=== PATIENT | male | born 1975 | race Caucasian/White ===

== ENCOUNTER 2017-07-29 22:24 | Emergency (ER) | payer OTHER ==
[~2017-07-29] VITALS: Ht 185.4 cm; Wt 158.8 kg
[~2017-07-29 22:24] MED LIST: ALBU0.0939; UNKNOWN BP MED
[2017-07-29 22:47] VITALS: BP 137/101
--- NOTE | 2017-07-29 23:06 | NUR ---
PT TAKEN TO CHAIR B. RN ASSESSING PT
--- NOTE | 2017-07-29 23:16 | NUR ---
41Y M BIB SELF C/O LEFT UPPER TOOTHACHE, RADIATING TO THE LEFT EAR X 1 DAY. PT DENIES ANY N/V/D, SOB, CP AT THE MOMENT. PT STATES HIS DENTIST WONT SEE HIM UNTIL PT BP IS CONTROLLED. PT CURRENTLY TAKING HTN MEDICATIONS.
--- NOTE | 2017-07-30 00:08 | NUR ---
Dr. Piña evaluating patient.
[2017-07-30] MEDS ORDERED: oxyCODONE/APAP 5/325 MG 1 TAB TAB PO ONE (00:10)
--- NOTE | 2017-07-30 00:35 | NUR ---
Patient discharged with v/s stable WILL BE DRIVEN HOME BY FRIEND REGGIE. Written and verbal after care instructions given and explained. Patient alert, oriented and verbalized understanding of instructions. Ambulatory with steady gait. All questions addressed prior to discharge. ID band removed. Patient advised to follow up with PMD. Rx of NORCO 5/325MG, AUGMENTIN 875MG given. Patient educated on indication of medication including possible reaction and side effects. Opportunity to ask questions provided and answered.
[2017-07-30 00:36] VITALS: BP 141/99
== END 2017-07-30 00:35 | disposition home or self-care (01) ==
LOC: MED 22:24
DX: K02.9 Dental caries, unspecified (principal); J44.9 Chronic obstructive pulmonary disease, unspecified; I10 Essential (primary) hypertension; Z79.899 Other long term (current) drug therapy; Z88.0 Allergy status to penicillin; Z88.1 Allergy status to other antibiotic agents
CPT/HCPCS: 99283

== ENCOUNTER 2018-03-08 19:29 | Emergency (ER) | payer OTHER ==
[~2018-03-08] VITALS: Ht 185.4 cm; Wt 170.6 kg
[2018-03-08 19:42] VITALS: BP 183/123
--- NOTE | 2018-03-08 19:45 | NUR ---
PT PRESENTED ER WITH C/O PAIN TO THE RIGHT SIDE OF MOUTH X 10 DAYS. PT HAS SWELLING TO RIGHT SIDE OF FACE.PT STATED HE WENT TO THE DENTIST BUT THEY REFUSED TO TREAT HIM DUE TO HIGH BP/ HE NEEDS A RELEASE FROM THE MD. PT HAS BEEN SWISHING WITH LISTERINE TO RELIEVE PAIN. PT STATED THE PAIN IS TRAVELING UP TO THE HEAD. PAIN LEVEL IS 10/10 AT THIS TIME. PT IS A/O X 4. PT HAS ALLERGIES TO PENICILLIN AND THE MYCINS. MEDICAL HX IS HTN AND KIDNEY DISEASE; VSS; PATIENT POSITIONED FOR COMFORT; HOB ELEVATED; BEDRAILS UP X2; BED DOWN. ER MD MADE AWARE OF PT STATUS.
--- NOTE | 2018-03-08 19:55 | NUR ---
PT TAKEN TO BED 9
--- NOTE | 2018-03-08 20:30 | NUR ---
Dr. Perez evaluating patient at bedside.
[2018-03-08 20:40] VITALS: BP 183/123
--- NOTE | 2018-03-08 20:40 | NUR ---
Patient discharged by Dr. Perez with v/s stable. Written and verbal after care instructions given and explained. Patient alert, oriented and verbalized understanding of instructions. Ambulatory with steady gait. All questions addressed prior to discharge. ID band removed. Patient advised to follow up with PMD. Rx of naprosyn and clindamycin was given. Patient educated on indication of medication including possible reaction and side effects. Opportunity to ask questions provided and answered.
== END 2018-03-08 20:40 | disposition home or self-care (01) ==
LOC: MED 19:29
DX: J44.9 Chronic obstructive pulmonary disease, unspecified (principal); K08.89 Other specified disorders of teeth and supporting structures; I10 Essential (primary) hypertension; F17.200 Nicotine dependence, unspecified, uncomplicated; F12.10 Cannabis abuse, uncomplicated; Z88.0 Allergy status to penicillin; Z79.899 Other long term (current) drug therapy
CPT/HCPCS: 99283

== ENCOUNTER 2019-01-20 15:17 | Emergency (ER) | payer OTHER ==
[~2019-01-20] VITALS: Ht 185.4 cm; Wt 172.0 kg
[2019-01-20 15:21] VITALS: BP 143/98
--- NOTE | 2019-01-20 15:31 | NUR ---
WAIT IN LOBBY.
--- NOTE | 2019-01-20 15:56 | NUR ---
PT AMBULATED TO ER BED 08
--- NOTE | 2019-01-20 16:13 | NUR ---
C/O LEFT BIG TOE PAIN & SWELLING X 2 DAYS. PT HAS HX OF GOUT. NOT ON MEDS FOR GOUT. HAS EXPERIENCED SIMILIAR SX IN THE PAST WITH DX OF GOUT. AMBULATORY, BUT WITH SEVERE PAIN, AND USE OF CANE. EDEMA AND ERYTHEMA SURROUNDING LEFT BIG TOE. TENDER TO PALPATION. LIMITED ROM. MED HX: HTN, KIDNEY PROBLEM, GOUT
--- NOTE | 2019-01-20 17:04 | NUR ---
DR THOMAS EVALUATING PATIENT AT BEDSIDE
[2019-01-20] MEDS ORDERED: HYDROcodone/APAP 5/325 MG 1 TAB TAB PO ONE (17:20)
[2019-01-20] MEDS ORDERED: predniSONE 20 MG TAB PO ONE (17:20)
[2019-01-20 17:50] VITALS: BP 127/67
== END 2019-01-20 17:47 | disposition home or self-care (01) ==
LOC: MED 15:17
DX: M10.9 Gout, unspecified (principal); J44.9 Chronic obstructive pulmonary disease, unspecified; I10 Essential (primary) hypertension; Z88.0 Allergy status to penicillin
CPT/HCPCS: 99283; J7512

== ENCOUNTER 2019-10-04 13:04 | Emergency (ER) | payer OTHER ==
[~2019-10-04] VITALS: Ht 185.4 cm; Wt 158.8 kg
[2019-10-04 13:24] VITALS: BP 179/88
--- NOTE | 2019-10-04 13:30 | NUR ---
PT INSTRUCTED TO WAIT IN LOBBY
--- NOTE | 2019-10-04 14:17 | NUR ---
PT AMBULATED TO ER BED 05
--- NOTE | 2019-10-04 14:30 | NUR ---
PT C/O ANKLE PAIN 10/10 SHARP PAIN RADIATING UP LED AND SWELLING X1 WEEK. PT DENIES INJURY. POST TIBIAL PULSES PRESENT. ANKLE IS ERYTHEMIC AND INFLAMMED WITH BLISTERS AROUND AREA. PATIENT STATES PAIN OF 10/10 AT THIS TIME; VSS; PATIENT POSITIONED FOR COMFORT; HOB ELEVATED; BEDRAILS UP X1; BED DOWN. ER MD MADE AWARE OF PT STATUS.
--- NOTE | 2019-10-04 14:30 | NUR ---
Dr. Ross is evaluating the patient at bedside.
[2019-10-04] MEDS ORDERED: cefTRIAXone 1,000 MG VIAL ONE (14:54)
[2019-10-04] MEDS ORDERED: LIDOCAINE MPF 1% 5 ML ONE (14:55)
[2019-10-04] MEDS: cefTRIAXone 1,000 MG in LIDOCAINE MPF 1% 2.1 ML IM ONE (15:02)
--- NOTE | 2019-10-04 15:06 | NUR ---
U/S IS AT BEDSIDE.
--- NOTE | 2019-10-04 15:40 | NUR ---
pt is resting in the bed. Helped pt raise his legs to reduce edema and pain the the lower legs.
--- NOTE | 2019-10-04 16:13 | NUR ---
Dr. Ross is reevaluating pt at bedside.
--- NOTE | 2019-10-04 16:52 | NUR ---
Patient discharged with v/s stable. Written and verbal after care instructions given and explained. Patient alert, oriented and verbalized understanding of instructions. Ambulatory with steady gait. All questions addressed prior to discharge. ID band removed. Patient advised to follow up with PMD. Rx of BACTRIM, KEFLEX given. Patient educated on indication of medication including possible reaction and side effects. Opportunity to ask questions provided and answered.
[2019-10-04 16:53] VITALS: BP 149/78
[2019-10-04 16:54] LABS: BASOPHILS # (AUTO) 0.1 K/uL (0.00-0.22); BASOPHILS % (AUTO) 1.2 % (0.0-2.0); EOSINOPHILS # (AUTO) 0.2 K/uL (0-0.4); EOSINOPHILS % (AUTO) 2.4 % (0.0-4.0); HEMATOCRIT 48.6 % (36-52); HEMOGLOBIN 15.9 g/dL (12.0-18.0); LYMPHOCYTES # (AUTO) 1.9 K/uL (2.0-11.5); LYMPHOCYTES % (AUTO) 23.7 % (20.5-51.1); MEAN CORPUSCULAR HEMOGLOBIN 27 pg (27-31); MEAN CORPUSCULAR HGB CONC 33 g/dL (33-37); MEAN CORPUSCULAR VOLUME 83.5 fL (80-94); MONOCYTES # (AUTO) 0.9 K/uL (0.8-1.0); MONOCYTES % (AUTO) 11.2 % (1.7-9.3); NEUTROPHILS % (AUTO) 61.5 % (42.2-75.2); PLATELET COUNT (AUTO) 227 K/uL (140-450); RED BLOOD CELL COUNT(AUTO) 5.82 MIL/uL (4.20-6.10); RED CELL DISTRIBUTION WIDTH 15.8 % (11.6-13.7); WHITE BLOOD COUNT (AUTO) 8.2 K/uL (4.8-10.8)
[2019-10-04 16:59] LABS: ANION GAP 11.9 (8-16); CARBON DIOXIDE 28.5 mmol/L (21-32); CREATININE 1.5 mg/dL (0.6-1.3); POTASSIUM 3.4 mmol/L (3.5-5.1)
[2019-10-04 17:43] LABS: PROTHROMBIN TIME 9.6 secs (10.8-13.4)
== END 2019-10-04 16:52 | disposition home or self-care (01) ==
LOC: MED 13:04
DX: I82.432 Acute embolism and thrombosis of left popliteal vein (principal); L03.116 Cellulitis of left lower limb; F17.210 Nicotine dependence, cigarettes, uncomplicated; J44.9 Chronic obstructive pulmonary disease, unspecified; I10 Essential (primary) hypertension; Z79.899 Other long term (current) drug therapy; Z88.0 Allergy status to penicillin; Z71.6 Tobacco abuse counseling
CPT/HCPCS: 36415; 80048; 85025; 85610; 85730; 93971; 96372; 99284; J0696; J2001; Q0092

== ENCOUNTER 2019-10-04 22:32 | Emergency (ER) | payer OTHER ==
[~2019-10-04] VITALS: Ht 185.4 cm; Wt 158.8 kg
[2019-10-04 22:50] VITALS: BP 185/101
--- NOTE | 2019-10-04 22:59 | NUR ---
PT TAKEN TO BED 4
--- NOTE | 2019-10-04 23:00 | NUR ---
PT EXAMINED BY ER MD SORIANO, NO NURSING INTERVENTIONS ORDERED.
--- NOTE | 2019-10-04 23:33 | NUR ---
Dr. Sales examining patient.
[2019-10-04 23:50] VITALS: BP 139/100
--- NOTE | 2019-10-04 23:51 | NUR ---
PT STATES HE DOES NOT WISH TO BE ADMITTED TO HOSPITAL.
--- NOTE | 2019-10-04 23:52 | NUR ---
Patient discharged with v/s stable. Written and verbal after care instructions given and explained. Patient alert, oriented and verbalized understanding of instructions. Ambulatory with steady gait. All questions addressed prior to discharge. ID band removed. Patient advised to be admitted, however, did not wish to stay in hospital and agreed to depart AMA. Rx of XARELTO given. Patient educated on indication of medication including possible reaction and side effects. Opportunity to ask questions provided and answered.
== END 2019-10-04 23:52 | disposition home or self-care (01) ==
LOC: MED 22:32
DX: I82.402 Acute embolism and thrombosis of unspecified deep veins of left lower extremity (principal); L03.116 Cellulitis of left lower limb; F17.210 Nicotine dependence, cigarettes, uncomplicated; J44.9 Chronic obstructive pulmonary disease, unspecified; I10 Essential (primary) hypertension; Z88.0 Allergy status to penicillin; Z79.899 Other long term (current) drug therapy
CPT/HCPCS: 99283

== ENCOUNTER 2020-01-14 15:50 | Emergency (ER) | payer OTHER ==
[~2020-01-14] VITALS: Ht 185.4 cm; Wt 154.2 kg
[2020-01-14 15:51] VITALS: BP 174/106
--- NOTE | 2020-01-14 16:03 | NUR ---
PT AMB TO BED 11
[2020-01-14] MEDS ORDERED: ACETAMINOPHEN 325 MG TAB PO ONE (16:40)
--- NOTE | 2020-01-14 16:47 | NUR ---
ref from pmd to r/o dvt rle--pt requested refill on his blood thinners rle always hurt cramping type pain about same time lle started to hurt but only dvt found on lle last time. denies recent injury
--- NOTE | 2020-01-14 16:51 | NUR ---
ultrasound at bedside
[2020-01-14 17:27] LABS: BASOPHILS % (AUTO) 0.3 % (0.0-2.0); EOSINOPHILS # (AUTO) 0.2 K/uL (0-0.4); EOSINOPHILS % (AUTO) 1.7 % (0.0-4.0); HEMATOCRIT 48.5 % (36-52); HEMOGLOBIN 15.9 g/dL (12.0-18.0); LYMPHOCYTES # (AUTO) 1.9 K/uL (2.0-11.5); LYMPHOCYTES % (AUTO) 17.5 % (20.5-51.1); MEAN CORPUSCULAR HEMOGLOBIN 28 pg (27-31); MEAN CORPUSCULAR HGB CONC 33 g/dL (33-37); MEAN CORPUSCULAR VOLUME 83.9 fL (80-94); MONOCYTES # (AUTO) 0.9 K/uL (0.8-1.0); MONOCYTES % (AUTO) 8.7 % (1.7-9.3); NEUTROPHILS # (AUTO) 7.7 K/uL (1.8-7.7); NEUTROPHILS % (AUTO) 71.8 % (42.2-75.2); PLATELET COUNT (AUTO) 201 K/uL (140-450); RED BLOOD CELL COUNT(AUTO) 5.78 MIL/uL (4.20-6.10); WHITE BLOOD COUNT (AUTO) 10.8 K/uL (4.8-10.8)
[2020-01-14 18:12] LABS: ALBUMIN 3.7 g/dL (3.4-5.0); ANION GAP 14.5 (8-16); CARBON DIOXIDE 25.9 mmol/L (21-32); CREATININE 1.5 mg/dL (0.6-1.3); POTASSIUM 3.4 mmol/L (3.5-5.1); TOTAL BILIRUBIN 0.5 mg/dL (0.0-1.0)
[2020-01-14 18:23] LABS: PROTHROMBIN TIME 9.5 secs (10.8-13.4)
--- NOTE | 2020-01-14 18:27 | NUR ---
Patient discharged with v/s stable. Written and verbal after care instructions given and explained. Patient alert, oriented and verbalized understanding of instructions. Ambulatory with steady gait. All questions addressed prior to discharge. ID band removed. Patient advised to follow up with PMD. Rx of TYLENOL given. Patient educated on indication of medication including possible reaction and side effects. Opportunity to ask questions provided and answered. ULTRASOUND READ HANDED TO PT FOR PMD
[2020-01-14 18:28] VITALS: BP 147/96
== END 2020-01-14 18:27 | disposition home or self-care (01) ==
LOC: MED 15:50
DX: M79.604 Pain in right leg (principal); R73.9 Hyperglycemia, unspecified; J44.9 Chronic obstructive pulmonary disease, unspecified; I10 Essential (primary) hypertension; Z79.899 Other long term (current) drug therapy; Z88.0 Allergy status to penicillin
CPT/HCPCS: 36415; 80053; 85025; 85610; 85730; 93971; 99284; Q0092

== ENCOUNTER 2020-07-12 14:18 | Emergency (ER) | payer OTHER ==
[~2020-07-12] VITALS: Ht 180.3 cm; Wt 179.6 kg
[2020-07-12 14:21] VITALS: BP 175/87
--- NOTE | 2020-07-12 14:41 | NUR ---
44 YO M BIB SELF FOR C/C OF 5/10 BILATERAL LEG PAIN X2 WEEKS WITH REDNESS AND SWELLING. PT DESCRIBES PAIN PINS AND NEEDLES AND FEELING LIKE HIS LEG IS GOING TO POP. PT STATES HE HAS A HX OF LEFT LEG DVT IN NOVEMBER 2019, PT WAS STARTED ON XARELTO AFTER DX. PT DENIES CHEST PAIN, STATES HE ALWAYS HAS SOB DUE TO COPD, DENIES INCREASED SOB. PEDAL PULSES EQUAL AND REGULAR. BED LOCKED AND IN LOWEST POSITION. SIDE RAILS X1. MED HX: COPD, HTN, DVT, STAGE 3 KIDNEY DISEASE
--- NOTE | 2020-07-12 14:50 | NUR ---
LAB AT BEDSIDE
--- NOTE | 2020-07-12 14:54 | NUR ---
US AT BEDSIDE
[2020-07-12 14:56] LABS: BASOPHILS % (AUTO) 0.3 % (0.0-2.0); EOSINOPHILS # (AUTO) 0.2 K/uL (0-0.4); EOSINOPHILS % (AUTO) 1.8 % (0.0-4.0); HEMATOCRIT 47.7 % (36-52); HEMOGLOBIN 15.8 g/dL (12.0-18.0); LYMPHOCYTES % (AUTO) 21.4 % (20.5-51.1); MEAN CORPUSCULAR HEMOGLOBIN 28 pg (27-31); MEAN CORPUSCULAR HGB CONC 33 g/dL (33-37); MONOCYTES # (AUTO) 0.8 K/uL (0.8-1.0); MONOCYTES % (AUTO) 8.2 % (1.7-9.3); NEUTROPHILS # (AUTO) 6.4 K/uL (1.8-7.7); NEUTROPHILS % (AUTO) 68.3 % (42.2-75.2); PLATELET COUNT (AUTO) 215 K/uL (140-450); RED BLOOD CELL COUNT(AUTO) 5.67 MIL/uL (4.20-6.10); RED CELL DISTRIBUTION WIDTH 15.3 % (11.6-13.7); WHITE BLOOD COUNT (AUTO) 9.3 K/uL (4.8-10.8)
[2020-07-12] MEDS ORDERED: HYDROcodone/APAP 5/325 MG 1 TAB TAB PO ONE (15:05)
[2020-07-12 15:16] LABS: PROTHROMBIN TIME 9.5 secs (10.8-13.4)
[2020-07-12 15:19] LABS: ALBUMIN 3.7 g/dL (3.4-5.0); ANION GAP 11.4 (8-16); CARBON DIOXIDE 30.3 mmol/L (21-32); CREATININE 1.6 mg/dL (0.6-1.3); POTASSIUM 3.7 mmol/L (3.5-5.1); TOTAL BILIRUBIN 0.5 mg/dL (0.0-1.0)
[2020-07-12 16:14] VITALS: BP 175/87
--- NOTE | 2020-07-12 16:15 | NUR ---
Patient discharged with v/s stable. Written and verbal after care instructions given and explained. Patient alert, oriented and verbalized understanding of instructions. Ambulatory with steady gait. All questions addressed prior to discharge. ID band removed. Patient advised to follow up with PMD. Rx of TYLENOL,BACTRIM given. Patient educated on indication of medication including possible reaction and side effects. Opportunity to ask questions provided and answered.
== END 2020-07-12 16:15 | disposition home or self-care (01) ==
LOC: MED 14:18
DX: L03.116 Cellulitis of left lower limb (principal); L03.115 Cellulitis of right lower limb; R60.0 Localized edema; F17.210 Nicotine dependence, cigarettes, uncomplicated; I13.10 Hypertensive heart and chronic kidney disease without heart failure, with stage 1 through stage 4 chronic kidney disease, or unspecified chronic kidney disease; N18.9 Chronic kidney disease, unspecified; J44.9 Chronic obstructive pulmonary disease, unspecified; Z88.0 Allergy status to penicillin
CPT/HCPCS: 36415; 80053; 85025; 85610; 85730; 93971; 99284

== ENCOUNTER 2021-12-21 15:44 | Emergency (ER) | payer OTHER ==
[~2021-12-21] VITALS: Ht 193 cm; Wt 172.4 kg
[2021-12-21 15:59] VITALS: BP 184/114
[2021-12-21 17:17] LABS: BASOPHILS # (AUTO) 0.1 K/uL (0.00-0.22); BASOPHILS % (AUTO) 1.3 % (0.0-2.0); EOSINOPHILS # (AUTO) 0.1 K/uL (0-0.4); EOSINOPHILS % (AUTO) 1.2 % (0.0-4.0); HEMATOCRIT 52.2 % (36-52); HEMOGLOBIN 17.1 g/dL (12.0-18.0); LYMPHOCYTES # (AUTO) 2.7 K/uL (2.0-11.5); LYMPHOCYTES % (AUTO) 24.3 % (20.5-51.1); MEAN CORPUSCULAR HEMOGLOBIN 27 pg (27-31); MEAN CORPUSCULAR HGB CONC 33 g/dL (33-37); MEAN CORPUSCULAR VOLUME 81.8 fL (80-94); MONOCYTES # (AUTO) 0.9 K/uL (0.8-1.0); MONOCYTES % (AUTO) 8.3 % (1.7-9.3); NEUTROPHILS # (AUTO) 7.2 K/uL (1.8-7.7); NEUTROPHILS % (AUTO) 64.9 % (42.2-75.2); PLATELET COUNT (AUTO) 237 K/uL (140-450); RED BLOOD CELL COUNT(AUTO) 6.38 MIL/uL (4.20-6.10); RED CELL DISTRIBUTION WIDTH 15.4 % (11.6-13.7); WHITE BLOOD COUNT (AUTO) 11.1 K/uL (4.8-10.8)
--- NOTE | 2021-12-21 17:25 | NUR ---
Grace castro in EDM - 12/21/21 at 1729 by [email or web address] PT STATED "IM LEAVING". PATIENT ELOPED FROM FACILITY. DISCHARGE INSTRUCTIONS NOT GIVEN TO PATIENT. DR. ECHAVARRIA NOTIFIED.
--- NOTE | 2021-12-21 17:25 | NUR ---
PT STATED "IM LEAVING". PATIENT LEFT WITHOUT BEING SEEN BY DR. ECHAVARRIA. NO FURTHER CARE PROVIDED FOR PATIENT.
[2021-12-21 17:32] LABS: ALBUMIN 3.7 g/dL (3.4-5.0); ANION GAP 12.6 (8-16); CREATININE 1.6 mg/dL (0.6-1.3); POTASSIUM 3.6 mmol/L (3.5-5.1); TOTAL BILIRUBIN 0.5 mg/dL (0.0-1.0)
== END 2021-12-21 17:25 | disposition left against medical advice (07) ==
LOC: MED 15:44
DX: I10 Essential (primary) hypertension (principal); Z53.21 Procedure and treatment not carried out due to patient leaving prior to being seen by health care provider
CPT/HCPCS: 36415; 80053; 83880; 85025; 85379; 99283